=== PATIENT | male | born 1970 | race Caucasian/White ===

== ENCOUNTER 2022-03-29 17:20 | Inpatient (IN) | payer OTHER, SELFPAY ==
[2022-03-29] VITALS (7 sets, daily range): BP systolic 149–168; BP diastolic 115–127; PULSE 88–100; RESP 18–31; TEMP 36.5–36.8; O2SAT 96–100; BMI 32.3
--- NOTE | ~2022-03-29 | XR_ITS ---
EXAMINATION: XR chest 2V 03/29/2022 17:42 INDICATION: Shortness of breath. Hypertension. CHF. PROCEDURE: 2 view chest COMPARISON: 03/10/2014 FINDINGS: There is bibasilar atelectasis. No focal pneumonia. Cardiomegaly.. There are no pleural ef fusions. There is no pneumothorax suspected. IMPRESSION: 1: Bibasilar atelectasis. 2: Cardiomegaly. Reviewed, dictated and finalized at location B.
--- NOTE | ~2022-03-29 | CT_ITS ---
EXAMINATION: CT chest abdomen pelvis wo con DATE: 03/29/2022 19:12 INDICATION: Shortness of breath, fluid overload, abdominal pain TECHNIQUE: Computed tomography (CT) of the chest, abdomen, and pelvis was performed without intraveno us contrast. Automated exposure control and iterative reconstruction technique were employed. Exam do se: 1743.48 mGy-cm total exam DLP. COMPARISON: 03/29/2022 2 view chest FINDINGS: CHEST CT: 7.9 mm right lower lobe pulmonary nodule Minimal bilateral lower lobe dependent atelectasis.. The lungs are otherwise clear of infiltrate or c onsolidation. There is cardiomegaly. Coronary artery calcifications. There is trace pericardial fluid. There are slight bilateral pleural effusions. No thoracic aortic aneurysm. No hilar mass lesion or adenopathy. Scattered likely reactive small medi astinal nodes. There is edema of the chest wall. ABDOMEN/PELVIS CT: There is prominent edema of the abdominal and pelvic woodruff. There is prominent asymmetric soft tissue thickening of the left rectus abdominis muscle with numerou s calcifications, extending from the upper to the lower abdomen. Differential diagnosis includes rect us abdominous intramuscular myositis ossificans, prior hematoma of the rectus abdominis muscle with s ubsequent calcification and other much less likely considerations such as soft tissue sarcoma metasta tic osteosarcoma. This would be amenable to CT-guided percutaneous needle biopsy as clinically approp riate. The gallbladder appears to be surgically absent. No hepatic, splenic, pancreatic, adrenal or renal sp kyaw-occupying mass lesion is detected. No urinary tract calculus is detected. There is mild left hydronephrosis, possibly due to ureteropelvic disproportion.. The urinary bladder is unremarkable. There is prostate enlargement and calcification. Normal caliber of the abdominal aorta. No intraperitoneal or retroperitoneal or pelvic mass lesion or adenopathy. There is mild free fluid in the dependent lower pelvis.. No suspicious osteolytic or osteoblastic lesions. IMPRESSION: Anasarca Cardiomegaly Coronary atherosclerosis Left rectus abdominis asymmetric enlargement and numerous calcifications; most likely diagnosis is my ositis ossificans or prior hematoma calcification; differential diagnosis is given above Nonspecific mild left hydronephrosis, without evidence of urinary tract calculus Prostate enlargement and calcifications 7.9 mm right lower lobe pulmonary nodule; follow-up CT imaging in 6-12 months is recommended Reviewed, dictated and finalized at Location [facility]. Reviewed, dictated and finalized at location A. IMPRESSION: Anasarca Cardiomegaly Coronary atherosclerosis Left rectus abdominis asymmetric enlargement and numerous calcifications; most likely diagnosis is myositis ossificans or prior hematoma calcification; differ ential diagnosis is given above Nonspecific mild left hydronephrosis, without evidence of urinary tract calculu s Prostate enlargement and calcifications 7.9 mm right lower lobe pulmonary nodule; follow-up CT imaging in 6-12 months i s recommended
--- NOTE | 2022-03-29 17:24 | ECG_ITS ---
Measurements Intervals [place] Rate: 98 P: 10 NM: 188 QRS: -29 QRSD: 99 T: 111 QT: 354 QTc: 454 Interpretive Statements SINUS RHYTHM BORDERLINE LEFT AXIS DEVIATION [QRS AXIS < -20] POSSIBLE LEFT VENTRICULAR HYPERTROPHY [VOLTAGE CRITERIA PLUS LAE OR QRS WIDENING] WITH SECONDARY REPOLARIZATION ABNORMALITY ABNORMAL ECG NO PREVIOUS ECG AVAILABLE FOR COMPARISON Electronically Signed On 03-30-2022 14:02:21 CDT by Owen Pereyra M.D.
--- NOTE | 2022-03-29 17:25 | PC.NURSE ---
anya, pt. sister.
--- NOTE | 2022-03-29 17:27 | ED.SOB ---
HPI - SOB/Dyspnea General Chief Complaint: Shortness of Breath/Dyspnea Stated Complaint: SOB, Abd Pain Time Seen by Provider: 03/29/22 17:24 Source: patient Mode of arrival: EMS Limitations: no limitations History of Present Illness HPI Narrative: This is a 52 year old male that presents to the ER for worsening shortness of breath. Associated with lower extremity edema. Reports he has been in [facility] the last couple of months so has not taken any of his medications. He also reports before he was in [facility] he had a biopsy on his stomach and was never able to follow up for this. Denies fever, cough, or chest pain. Related Data Allergies Allergy/AdvReac Type Severity Reaction Status Date / Time Penicillins Allergy Other Verified 03/29/22 17:25 Review of Systems Review of Systems: CONSTITUTIONAL: Denies fever, CARDIOVASCULAR: Reports edema. Denies chest pain RESPIRATORY: Reports dyspnea. GASTROINTESTINAL: Denies abdominal pain, nausea, vomiting, or diarrhea. All systems reviewed & are unremarkable except as noted in HPI and below PMFSH Past Medical History Medical History (Updated 03/29/22 @ 22:53 by Hayley Armenta PA-C) History of CHF (congestive heart failure) History of hypertension Social History Social History (Updated 03/29/22 @ 17:44 by Hayley Armenta PA-C) Smoking status: Current every day smoker Alcohol intake: current Substance use: current Exam Narrative: GENERAL: Well-appearing, well-nourished, and in no acute distress. HEAD: Normocephalic, atraumatic. EYES: EOMI. CHEST: No respiratory distress. Rales in the bilateral lower lobes. No wheezes or rhonchi HEART: Regular rate and rhythm. No murmur heard. Normal peripheral pulses. ABDOMEN: Soft, nontender, nondistended, normal active bowel sounds. EXTREMITIES: Normal range of motion. 1+ pitting edema to the bilateral lower extremities. Normal DP pulses SKIN: Warm, dry, no rash. NEURO: No focal deficits. Alert and oriented x3. PSYCH: Normal mood and affect Course Consultations Consultation #1: Spoke with patient's primary about work-up. Patient will be started on amlodipine and is to follow-up outpatient. Date: 03/29/22 Vital Signs Vital signs: Vital Signs Blood Pressure 168/127 H 03/29/22 17:15 Temperature 98.2 F 03/29/22 21:37 Pulse Rate 95 03/29/22 18:19 Respiratory Rate 31 H 03/29/22 18:19 Blood Pressure 149/117 H 03/29/22 18:19 Pulse Oximetry 100 03/29/22 18:19 Oxygen Delivery Room Air 03/29/22 17:19 MDM - SOB/Dyspnea MDM Narrative Medical decision making narrative: Patient presents to the emergency department for worsening dyspnea over the last couple of months. Reportedly patient had been incarcerated and was not taking any of his medications. Quite hypertensive on arrival, this improved with IV Lasix. His shortness of breath improved as well. Oxygen saturation has remained normal on room air. CBC with mild normocytic anemia with hemoglobin of 13.4. Metabolic panel without concerning findings. EKG without acute ST changes and baseline troponin is negative. BNP is elevated to 5830. CT of the chest/abdomen/pelvis shows anasarca with cardiomegaly and coronary atherosclerosis. She has left rectus abdominis asymmetric enlargement and numerous calcifications. Patient reports he has had this area biopsied in [place] prior to being incarcerated. He had not followed up for the results of this yet. She has a pulmonary nodule that will need follow-up in 6 to 12 months. Patient was updated on case findings. Will be admitted for further management of fluid overload. Spoke with hospitalist about patient and work-up who accepts admission Lab Data Attestation: I reviewed the patient's lab results. Result diagrams: 03/29/22 17:28 03/29/22 17:28 Labs: Lab Results 03/29/22 03/29/22 03/29/22 Range/Units 17:28 17:28 17:28 WBC 8.2 (4.5-10.0) K/mm3 RBC 5.00 (4.6-6.20
[2022-03-29 17:37] LABS: Basophils Absolute Auto 0.1 K/mm3 (0.0-0.1); Basophils Percent Auto 1.2 % (0.2-1.2); Eosinophils Absolute Auto 0.2 K/mm3 (0-0.3); Eosinophils Percent Auto 1.8 % (0-4.4); Hemoglobin 13.4 g/dL (14.0-18.0); Immature Granulocyte Absolute 0.02 K/mm3 (0.00-0.031); Immature Granulocyte Percent A 0.2 % (0-0.5); Lymphocytes Absolute Auto 1.42 K/mm3 (0.9-3.2); Lymphocytes Percent Auto 17.4 % (18.3-44.2); Mean Corpuscular HGB Conc 30.5 g/dl (32-36); Mean Corpuscular Hemoglobin 26.8 pg (26-34); Mean Platelet Volume 10.2 fl (7.4-10.4); Monocytes Absolute Auto 1.1 K/mm3 (0.1-0.6); Monocytes Percent Auto 13.9 % (2.6-8.5); Neutrophils Absolute Auto 5.3 K/mm3 (1.3-6.7); Neutrophils Percent Auto 65.5 % (45.5-73.1); Platelet Count Result 321 k/mm3 (150-375); Red Cell Distribution Width 15.6 % (11.5-14.5); White Blood Count 8.2 K/mm3 (4.5-10.0)
[2022-03-29 17:48] LABS: INR 1.3; Partial Thromboplastin Time 29.3 SECONDS (22.3-36.8); Prothrombin Time 15.6 Seconds (11.1-14.7)
[2022-03-29 17:51] LABS: Alanine Aminotransferase 20 U/L (6-50); Albumin Level 4.1 g/dL (3.5-5.1); Alkaline Phosphatase 89 U/L (38-126); Anion Gap 7 mmol/L (8-16); Aspartate Amino Transferase 29 U/L (17-59); Bilirubin,Total 1.4 mg/dL (0.2-1.3); Blood Urea Nitrogen 21 mg/dL (9-20); Calcium 9.9 mg/dL (8.4-10.2); Carbon Dioxide 28 mmol/L (22-30); Chloride 104 mmol/L (98-107); Estimated Glomerular Filt Rate > 60; Glucose 99 mg/dL (65-110); Lipase 115 U/L (23-300); Sodium 139 mmol/L (137-145)
[2022-03-29 18:02] LABS: NT Pro B Type Natriuretic Pept 5830 pg/mL (5-100)
[2022-03-29 18:06] LABS: Troponin I 0.027 ng/mL (0.000-0.034)
[2022-03-29] MEDS: FUROSEMIDE INJ 40 MG/4 ML VIAL IV PUSH (18:18)
--- NOTE | 2022-03-29 23:18 | ADMGEN ---
This patient, Papi Sanchez, was admitted to [address] [place] [address] Room 310-01. Patient/family oriented to hospital policies and general routines including ID bracelet, bed and alarms, visiting hours, pain management, procedures, bathroom and other care routines, personal items, smoking policy, room service/diet, and visiting hours. Information on how to activate the Rapid Response Team has been discussed. Patient/Family are encouraged to report perceived risks to care and to ask questions if they do not understand what they are told or what they should do.
--- NOTE | 2022-03-29 23:22 | PC.NURSE ---
Home medications completed via external med rec per Dr. Rishi MONTOYA. Patient has been unable to take medications as prescribed.
[2022-03-30] VITALS (7 sets, daily range): BP systolic 119–127; BP diastolic 70–93; PULSE 83–97; RESP 18–20; TEMP 35.9–36.8; O2SAT 95–97
--- NOTE | 2022-03-30 | ECHO_ITS ---
Patient Info Name: Papi Sanchez Age: 52 years : 1970 Gender: Male Ht: 69 in Wt: 218 lbs BSA: 2.23 m2 HR: 86 bpm BP: 119 / 78 mmHg Technical Quality: Good Exam Date: 03/30/2022 11:31 AM Exam Location: [facility] Pulmonary Exam Room: 310 Patient Status: Outpatient Admit Date: 03/29/2022 Staff Ordering Physician: Nereyda Blackwell DO Lacer And Tier: Radha Reyna RDCS Attending Provider: Georgina Sutton PA-C Referring Physician: Rishi WALTERS; Exam Type: CA echo doppler color flow Study Info Indications - CHF EXACERBATION Complete two-dimensional, color flow and Doppler transthoracic echocardiogram is performed. Summary 1. Complete two-dimensional, color flow and Doppler transthoracic echocardiogram is performed. 2. Left ventricular chamber dimension is severely enlarged. 3. Left ventricular systolic function is severely reduced, estimated at 20-25%. 4. There is mildly increased left ventricular wall thickness. 5. The left ventricular diastolic function is abnormal. 6. E/e' 26 is elevated. 7. Left atrial chamber dimension is severely enlarged. 8. Right atrial chamber dimension is severely enlarged. 9. There is mild aortic valve sclerosis. 10. The mitral valve has mildly thickened leaflets and mildly calcified annulus. 11. There is mild to moderate mitral valve regurgitation. 12. There is mild tricuspid valve regurgitation. 13. No pulmonary hypertension, estimated pulmonary arterial systolic pressure is 34 mmHg. 14. There is small circumferential pericardial effusion. Left Ventricle E/e' 26 is elevated. Left ventricular chamber dimension is severely enlarged. Left ventricular systolic function is severely reduced, estimated at 20-25%. There is mildly increased left ventricular wall thickness. The left ventricular diastolic function is abnormal. Right Ventricle Right ventricular chamber dimension is normal. Right ventricular systolic function is normal. Left Atria Left atrial chamber dimension is severely enlarged. Right Atria Right atrial chamber dimension is severely enlarged. Aortic Valve The aortic valve is trileaflet. There is mild aortic valve sclerosis. There is no aortic valve stenosis. There is no aortic valve regurgitation. Pulmonic Valve There is no pulmonic regurgitation. Mitral Valve The mitral valve has mildly thickened leaflets and mildly calcified annulus. There is no mitral valve stenosis. There is mild to moderate mitral valve regurgitation. Tricuspid Valve There is mild tricuspid valve regurgitation. No pulmonary hypertension, estimated pulmonary arterial systolic pressure is 34 mmHg. Pericardium/Pleural No cardiac tamponade. There is small circumferential pericardial effusion. Inferior Vena Cava Normal inferior vena cava with >50% collapse upon inspiration consistent with normal right atrial pressure, 5 mmHg. Aorta The aortic root size at the sinus of Valsalva is normal. Left Ventricular Outflow Tract Name Value Normal LVOT 2D LVOT Diameter 2.1 cm LVOT Doppler LVOT Peak Gradient 3 mmHg LVOT Mean
--- NOTE | 2022-03-30 05:53 | PM.IMHP ---
H&P: HPI History of Present Illness Date/Time: 03/30/22 05:53 Chief Complaint: Shortness of breath, worsening swelling Narrative: 52-year-old male with past medical history of CHF, valvular heart disease, hyperlipidemia, essential hypertension, BPH, GERD and prior evaluation for calcifications in his rectus abdominus muscles who presented to the ER via EMS from [facility] due to increasing shortness of breath. The patient reports that he has had progressive shortness of breath for the last 70 or days or so. He was smoking meth and was homeless so he was living at an abandoned house. During this time he he was not concerned about taking his antihypertensives and other medications due to his drug use. He was having difficulty following up with his care providers due to lack of support. Then approximately 45 days ago he was arrested and placed in the [facility] care due to being charged with burglary for being in the abandoned house. He reported that he was already short of breath before he was ever arrested. He you at that time was having some mild lower extremity swelling. Throughout the course of his incarceration his edema had progressively worsened moving up his legs and into his abdominal wall. He reports that his abdomen became so heavy that he had to walk stooped over. He was having marked orthopnea and was having difficulty sleeping at night. When the staff at the senior care would wake him up he would feel so bad that he did not want to take his medications. He has been trying over the last 2 weeks to take his medications more regularly. He stated that the present staff were not concerned about his symptoms and did not bring him in for evaluation until 1 of his fellow inmates voiced concerns about his condition yesterday. He was due for his court hearing on the and he was is hoping that he could make it to the and then he planned to come to the ER. Instead since his fellow inmate voiced concerns the patient was brought. He has been released from senior care at this time for medical evaluation. Patient reports that he has not been able to walk even more than 6 ft without profound dyspnea. He denies any chest pain or palpitations. He reports that he has been off of methamphetamines since he was placed in [facility]. He reports that he has been having dark urine and not significant amounts prior to coming to the ER. But after he received 40 mg IV Lasix in the ER he filled 5 urinals while in the ER. He he has only urinated once since arriving to the medical floor. He does have known calcification of his left rectus abdominus muscles and has had prior CT-guided biopsies at [place]. He reports that he was told he had some problems with his heart valves at [place] a couple of years ago. He has not had an echo of his heart in at least the last year if not longer. He denies a prior history of FL but is on Plavix. Information obtained from patient report and ER records. Review of Systems Review of Systems: 12 systems were reviewed with pertinent positives and negatives per HPI. Except as documented in the HPI, all other systems were reviewed and are negative. [facility] Past Medical History Medical History (Updated 03/30/22 @ 08:48 by Nereyda Blackwell DO) BPH (benign prostatic hyperplasia) CHF (congestive heart failure) Essential hypertension GERD (gastroesophageal reflux disease) Hyperlipidemia Methamphetamine abuse TIA (transient ischemic attack) Valvular heart disease Surgical History Surgical History (Updated 03/30/22 @ 08:17 by Nereyda Blackwell DO) History of biopsy History of CT-guided biopsy of left rectus abdominus enlargement and calcifications. Patient does not know his official diagnosis. Hx of cholecystectomy (~2019) Status post open reduction with internal fixation of fracture (~1986) Left orbital blowout fracture Family History Family History (Updated 03/30/22 @ 08:19 by Nereyda Blackwell DO) Mother , Age 5
[2022-03-30] MEDS: ENOXAPARIN 40 MG/0.4 ML SYRINGE SUB-Q (09:33)
[2022-03-30] MEDS: amLODIPine BESYLATE 5 MG TABLET 10 MG PO (09:33)
[2022-03-30] MEDS: lisinopriL 20 MG TABLET PO (09:33)
[2022-03-30] MEDS: PANTOPRAZOLE 40 MG TABLET PO (09:33)
[2022-03-30] MEDS: NIFEdipine 30 MG TAB.ER.24 60 MG PO (09:33)
[2022-03-30] MEDS: CLOPIDOGREL BISULFATE 75 MG TABLET PO (09:33)
[2022-03-30] MEDS: FUROSEMIDE INJ 40 MG/4 ML VIAL IV PUSH ×2 (09:34→21:18)
[2022-03-30 09:44] LABS: Hematocrit 39.9 % (42.0-52.0); Hemoglobin 12.4 g/dL (14.0-18.0); Mean Corpuscular HGB Conc 31.1 g/dl (32-36); Mean Corpuscular Hemoglobin 26.6 pg (26-34); Mean Corpuscular Volume 85.4 fl (80-100); Mean Platelet Volume 10.2 fl (7.4-10.4); Platelet Count Result 293 k/mm3 (150-375); Red Blood Count 4.67 M/mm3 (4.6-6.20); Red Cell Distribution Width 15.4 % (11.5-14.5); White Blood Count 6.1 K/mm3 (4.5-10.0)
[2022-03-30 10:02] LABS: Anion Gap 6 mmol/L (8-16); Blood Urea Nitrogen 19 mg/dL (9-20); Calcium 9.2 mg/dL (8.4-10.2); Carbon Dioxide 30 mmol/L (22-30); Chloride 103 mmol/L (98-107); Estimated CRCL calculation 89 ml/min; Estimated Glomerular Filt Rate > 60; Glucose 129 mg/dL (65-110); Potassium 4.1 mmol/L (3.4-5.0); Sodium 139 mmol/L (137-145)
[2022-03-30] MEDS: TAMSULOSIN HCL 0.4 MG CAPSULE PO (12:08)
--- NOTE | 2022-03-30 15:59 | PM.IMPN ---
Progress Note: A&P Assessment and Plan (1) CHF exacerbation: Qualifiers: Heart failure type: unspecified Qualified Code(s): I50.9 - Heart failure, unspecified Code(s): I50.9 - Heart failure, unspecified Status: Acute Assessment and Plan: Patient presented with increased shortness of breath and diffuse edema Echo revealed severely reduced EF 20-25% with abnormal diastolic function. Will consult cardiology. Patient likely will require LifeVest. Continue with IV Lasix 40 mg b.i.d. Monitor strict I&O, daily weights. Heart healthy diet. Continue lisinopril Patient has chronically uncontrolled heart failure. He has been off of his medications for some time. Records pending from [facility] (2) Anasarca: Code(s): R60.1 - Generalized edema Status: Acute Assessment and Plan: Secondary to uncontrolled heart failure Continue with diuresis Monitor volume status (3) Pulmonary nodule: Code(s): R91.1 - Solitary pulmonary nodule Status: Acute Assessment and Plan: CT of the chest revealed 7.9 mm right lower lobe pulmonary nodule Will need outpatient repeat CT scan of the chest in 6-12 months (4) Methamphetamine abuse in remission: Code(s): F15.11 - Other stimulant abuse, in remission Status: Acute Assessment and Plan: Patient had been using methamphetamines prior to his incarceration He has been off of methamphetamines for over 1 month. He wishes to continue to abstain from drugs. He is interested in inpatient treatment options at [facility] Care coordination following. Resources have been provided. (5) Hypertension: Qualifiers: Hypertension type: primary hypertension Qualified Code(s): I10 - Essential (primary) hypertension Code(s): I10 - Essential (primary) hypertension Status: Acute Assessment and Plan: Blood pressure reviewed and has improved following diuresis. Last BP 127/93 Continue amlodipine, lisinopril, nifedipine (6) Abnormal CT of the abdomen: Code(s): R93.5 - Abnormal findings on diagnostic imaging of other abdominal regions, including retroperitoneum Status: Acute Assessment and Plan: CT of the abdomen revealed left rectus abdominus asymmetric enlargement and numerous calcifications. Most likely diagnosis is myositis ossifications or prior hematoma calcification. Less likely considerations include soft tissue sarcoma, metastatic osteosarcoma Patient has been evaluated by this in the past and reports recently had CT-guided biopsy at [place] Records have been requested No acute issues at this time. He will need to follow-up outpatient regarding this Subjective Date/time seen: 03/30/22 15:59 Interval history: Date of service: 03/30/2022 Papi Sanchez is a 52-year-old male with a history of CHF currently untreated, hypertension, hyperlipidemia, methamphetamine abuse, BPH, valvular disease, and recent incarceration who is seen in follow-up for CHF exacerbation. He is feeling better today. He states that his shortness of breath is improved. His swelling has gone down ?a lot.? He was having issues with swelling in his feet, legs, and stomach. He states the stomach swelling took a bit longer to go down but everything is improving now. He does endorse GERONIMO. He denies PND or orthopnea. He denies cough. He has been feeling fatigued. Denies dizziness, lightheadedness, or weakness. He states he wants to stop using drugs but he is not sure where he is going to go hemorrhoids here because most of his friends are still using drugs and he does not to put himself in that situation. Review of Systems Review of Systems: All systems reviewed & are unremarkable except as noted in HPI and below Exam Narrative: General: Well-nourished, well-appearing 52-year-old male, semi recumbent in bed, comfortable, NARD Neuro: awake
--- NOTE | 2022-03-30 23:47 | PCRCNOTE ---
pt unable to do sleep study due to lasix administration on 03/30.
[2022-03-31] VITALS (9 sets, daily range): BP systolic 112–124; BP diastolic 70–89; PULSE 72–96; RESP 16–20; TEMP 36.1–36.6; O2SAT 93–95
[2022-03-31 07:00] LABS: Hematocrit 40.6 % (42.0-52.0); Hemoglobin 12.8 g/dL (14.0-18.0); Mean Corpuscular HGB Conc 31.5 g/dl (32-36); Mean Corpuscular Hemoglobin 26.5 pg (26-34); Mean Corpuscular Volume 84.1 fl (80-100); Mean Platelet Volume 10.4 fl (7.4-10.4); Platelet Count Result 324 k/mm3 (150-375); Red Blood Count 4.83 M/mm3 (4.6-6.20); Red Cell Distribution Width 15.1 % (11.5-14.5)
[2022-03-31 07:10] LABS: Anion Gap 7 mmol/L (8-16); Blood Urea Nitrogen 18 mg/dL (9-20); Calcium 9.6 mg/dL (8.4-10.2); Carbon Dioxide 30 mmol/L (22-30); Chloride 102 mmol/L (98-107); Estimated CRCL calculation 87 ml/min; Estimated Glomerular Filt Rate > 60; Glucose 126 mg/dL (65-110); Potassium 3.6 mmol/L (3.4-5.0); Sodium 139 mmol/L (137-145)
[2022-03-31] MEDS: FUROSEMIDE INJ 40 MG/4 ML VIAL IV PUSH ×2 (10:04→20:44)
[2022-03-31] MEDS: ENOXAPARIN 40 MG/0.4 ML SYRINGE SUB-Q (10:04)
[2022-03-31] MEDS: lisinopriL 20 MG TABLET PO (10:05)
[2022-03-31] MEDS: CLOPIDOGREL BISULFATE 75 MG TABLET PO (10:05)
[2022-03-31] MEDS: PANTOPRAZOLE 40 MG TABLET PO (10:05)
[2022-03-31] MEDS: amLODIPine BESYLATE 5 MG TABLET 10 MG PO (10:05)
[2022-03-31] MEDS: TAMSULOSIN HCL 0.4 MG CAPSULE PO (10:05)
[2022-03-31] MEDS: NIFEdipine 30 MG TAB.ER.24 60 MG PO (10:05)
--- NOTE | 2022-03-31 11:44 | PM.CNCAR ---
Assessment and Plan Assessment and plan (1) CHF exacerbation: Qualifiers: Heart failure type: unspecified Qualified Code(s): I50.9 - Heart failure, unspecified Code(s): I50.9 - Heart failure, unspecified Status: Acute Assessment and Plan: Acute systolic heart failure. Continue lisinopril. Will add carvedilol 3.25 mg p.o. b.i.d.. He is also on 2 calcium channel blockers which I am uncertain as to why. Will stop his amlodipine and eventually get him off of nifedipine also and transition him to standard heart failure meds. Continue IV diuresis. Follow renal function. (2) Cardiomyopathy: Code(s): I42.9 - Cardiomyopathy, unspecified Status: Acute Assessment and Plan: Probably nonischemic. EF 20 25%. Will request records from [place] as it sounds like the patient had a cardiac catheterization recently. (3) Hypertension: Qualifiers: Hypertension type: primary hypertension Qualified Code(s): I10 - Essential (primary) hypertension Code(s): I10 - Essential (primary) hypertension Status: Acute Assessment and Plan: At goal (4) Methamphetamine abuse in remission: Code(s): F15.11 - Other stimulant abuse, in remission Status: Acute History of Present Illness History of Present Illness Consult date/time: 03/31/22 11:44 Reason For Visit: [place] Narrative: Date of service: 03/31/2022 Reason for consultation congestive heart failure Requesting provider: Georgina Sutton Review of Systems Review of Systems: All systems reviewed & are unremarkable except as noted in HPI and below Constitutional: Constitutional: Denies body ache(s) Eyes: Eyes: Denies blurry vision ENT: Reports Normal hearing present Cardiovascular: Cardiovascular: Denies chest pain and Reports leg edema Respiratory: Respiratory: Reports dyspnea Gastrointestinal: Gastrointestinal: Denies abdominal pain Genitourinary: Genitourinary: Denies hematuria Musculoskeletal: Musculoskeletal: Denies back pain Integumentary/Breasts: Skin/Breast: Denies breast pain Neurologic: Denies Abnormal speech present Psychiatric: Psychiatric: Denies confusion Endocrine: Endocrine: Denies excessive sweating Hematologic/Lymphatic: Hematologic/Lymphatic: Denies easy bleeding Allergic/Immunologic: Allergic/Immunologic: Denies GI upset with certain foods PMFSH Past Medical History Medical History BPH (benign prostatic hyperplasia) CHF (congestive heart failure) Essential hypertension GERD (gastroesophageal reflux disease) Hyperlipidemia Methamphetamine abuse TIA (transient ischemic attack) Valvular heart disease Surgical History Surgical History History of biopsy History of CT-guided biopsy of left rectus abdominus enlargement and calcifications. Patient does not know his official diagnosis. Hx of cholecystectomy (~2019) Status post open reduction with internal fixation of fracture (~1986) Left orbital blowout fracture Family History Family History Mother , Age 50 Lung cancer Hypertension Father , 864 S/P triple vessel bypass Hypertension Chronic kidney disease Sibling Cerebrovascular accident Heart attack Hypertension Social History Social History Social History: He has been homeless since 2019. 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 He has smoked a half a pack per day since he was 16 years old. He used to drink up to 1-2 pt of alcohol a day but only rarely drinks alcohol now. He has used methamphetamines on a frequent an almost daily
--- NOTE | 2022-03-31 14:48 | P.PNIM_ITS ---
Progress Note: A&P Assessment and Plan (1) CHF exacerbation: Qualifiers: Heart failure type: unspecified Qualified Code(s): I50.9 - Heart failure, unspecified Code(s): I50.9 - Heart failure, unspecified Status: Acute Assessment and Plan: Patient presented with increased shortness of breath and diffuse edema. BNP 5800 * Echo revealed severely reduced EF 20-25% with abnormal diastolic function * Appreciate cardiology consultation * Continue with IV Lasix 40 mg b.i.d. * Started on carvedilol 3.25 mg b.i.d. * Continue lisinopril * Monitor strict I&O, daily weights. Heart healthy diet. * Patient has chronically uncontrolled heart failure. He has been off of his medications for some time. * Records pending from [facility] * He has had symptomatic improvement with diuresis (2) Anasarca: Code(s): R60.1 - Generalized edema Status: Acute Assessment and Plan: Secondary to uncontrolled heart failure * Continue with diuresis * Monitor volume status (3) Pulmonary nodule: Code(s): R91.1 - Solitary pulmonary nodule Status: Acute Assessment and Plan: CT of the chest revealed 7.9 mm right lower lobe pulmonary nodule * Will need outpatient repeat CT scan of the chest in 6-12 months (4) Methamphetamine abuse in remission: Code(s): F15.11 - Other stimulant abuse, in remission Status: Acute Assessment and Plan: Patient had been using methamphetamines prior to his incarceration * He has been off of methamphetamines for over 1 month. * He wishes to continue to abstain from drugs. * He is interested in inpatient treatment options at [facility] * Care coordination following. Resources have been provided. (5) Hypertension: Qualifiers: Hypertension type: primary hypertension Qualified Code(s): I10 - Essential (primary) hypertension Code(s): I10 - Essential (primary) hypertension Status: Acute Assessment and Plan: Blood pressure reviewed and has improved following diuresis. Last BP 124/89 * Continue lisinopril and nifedipine * Amlodipine has been discontinued per Cardiology. Patient was on 2 calcium channel graciela medications * Monitor BP trends (6) Abnormal CT of the abdomen: Code(s): R93.5 - Abnormal findings on diagnostic imaging of other abdominal regions, including retroperitoneum Status: Acute Assessment and Plan: CT of the abdomen revealed left rectus abdominus asymmetric enlargement and numerous calcifications. Most likely diagnosis is myositis ossifications or prior hematoma calcification. Less likely considerations include soft tissue sarcoma, metastatic osteosarcoma * Patient has been evaluated for this in the past and reports recently had CT- guided biopsy at [place] * Records have been requested * No acute issues at this time. He will need to follow-up outpatient regarding this Subjective Date/time seen: 03/31/22 14:48 Interval history: Date of service: 03/31/2022 Papi Sanchez is a 52-year-old male with a history of CHF currently untreated, hypertension, hyperlipidemia, methamphetamine abuse, BPH, valvular disease, and recent incarceration who is seen in follow-up for CHF exacerbation. He feels better today. His shortness of breath has improved. He also believes his swelling has improved. At this time he states his feet are pretty measures only swelling he has left. He denies any further abdominal swelling. He does have a bit of abdominal gisselle
--- NOTE | 2022-03-31 14:48 | PM.IMPN ---
Progress Note: A&P Assessment and Plan (1) CHF exacerbation: Qualifiers: Heart failure type: unspecified Qualified Code(s): I50.9 - Heart failure, unspecified Code(s): I50.9 - Heart failure, unspecified Status: Acute Assessment and Plan: Patient presented with increased shortness of breath and diffuse edema. BNP 5800 Echo revealed severely reduced EF 20-25% with abnormal diastolic function Appreciate cardiology consultation Continue with IV Lasix 40 mg b.i.d. Started on carvedilol 3.25 mg b.i.d. Continue lisinopril Monitor strict I&O, daily weights. Heart healthy diet. Patient has chronically uncontrolled heart failure. He has been off of his medications for some time. Records pending from [facility] He has had symptomatic improvement with diuresis (2) Anasarca: Code(s): R60.1 - Generalized edema Status: Acute Assessment and Plan: Secondary to uncontrolled heart failure Continue with diuresis Monitor volume status (3) Pulmonary nodule: Code(s): R91.1 - Solitary pulmonary nodule Status: Acute Assessment and Plan: CT of the chest revealed 7.9 mm right lower lobe pulmonary nodule Will need outpatient repeat CT scan of the chest in 6-12 months (4) Methamphetamine abuse in remission: Code(s): F15.11 - Other stimulant abuse, in remission Status: Acute Assessment and Plan: Patient had been using methamphetamines prior to his incarceration He has been off of methamphetamines for over 1 month. He wishes to continue to abstain from drugs. He is interested in inpatient treatment options at [facility] Care coordination following. Resources have been provided. (5) Hypertension: Qualifiers: Hypertension type: primary hypertension Qualified Code(s): I10 - Essential (primary) hypertension Code(s): I10 - Essential (primary) hypertension Status: Acute Assessment and Plan: Blood pressure reviewed and has improved following diuresis. Last BP 124/89 Continue lisinopril and nifedipine Amlodipine has been discontinued per Cardiology. Patient was on 2 calcium channel graciela medications Monitor BP trends (6) Abnormal CT of the abdomen: Code(s): R93.5 - Abnormal findings on diagnostic imaging of other abdominal regions, including retroperitoneum Status: Acute Assessment and Plan: CT of the abdomen revealed left rectus abdominus asymmetric enlargement and numerous calcifications. Most likely diagnosis is myositis ossifications or prior hematoma calcification. Less likely considerations include soft tissue sarcoma, metastatic osteosarcoma Patient has been evaluated for this in the past and reports recently had CT-guided biopsy at [place] Records have been requested No acute issues at this time. He will need to follow-up outpatient regarding this Subjective Date/time seen: 03/31/22 14:48 Interval history: Date of service: 03/31/2022 Papi Sanchez is a 52-year-old male with a history of CHF currently untreated, hypertension, hyperlipidemia, methamphetamine abuse, BPH, valvular disease, and recent incarceration who is seen in follow-up for CHF exacerbation. He feels better today. His shortness of breath has improved. He also believes his swelling has improved. At this time he states his feet are pretty measures only swelling he has left. He denies any further abdominal swelling. He does have a bit of abdominal pain in the left lower quadrant. He describes the area of calcification in his abdomen as a heaviness that ?pulls? when he is walking. He is able to ambulate around his room without difficulty. He denies GERONIMO. No chest pain or palpitations. Review of Systems Review of Systems: All systems reviewed & are unremarkable except as noted in HPI and below Exam Narrative: General: Well-nourished, well-appearing 5
[2022-03-31] MEDS: carvediloL 3.125 MG TABLET PO (20:44)
--- NOTE | 2022-03-31 21:15 | PCRCNOTE ---
ApneaLink held for tonight due to patient receiving Lasix and making frequent trips to the bathroom, per patient
[2022-04-01] VITALS (8 sets, daily range): BP systolic 110–122; BP diastolic 75–90; PULSE 85–102; RESP 18–20; TEMP 36.2–36.5; O2SAT 97–98
[2022-04-01 06:43] LABS: Hematocrit 40.7 % (42.0-52.0); Hemoglobin 12.5 g/dL (14.0-18.0); Mean Corpuscular HGB Conc 30.7 g/dl (32-36); Mean Corpuscular Hemoglobin 26.8 pg (26-34); Mean Corpuscular Volume 87.2 fl (80-100); Mean Platelet Volume 10.1 fl (7.4-10.4); Platelet Count Result 316 k/mm3 (150-375); Red Blood Count 4.67 M/mm3 (4.6-6.20); Red Cell Distribution Width 15.3 % (11.5-14.5); White Blood Count 7.2 K/mm3 (4.5-10.0)
[2022-04-01 07:01] LABS: Anion Gap 6 mmol/L (8-16); Blood Urea Nitrogen 20 mg/dL (9-20); Calcium 9.6 mg/dL (8.4-10.2); Carbon Dioxide 31 mmol/L (22-30); Chloride 101 mmol/L (98-107); Estimated CRCL calculation 76 ml/min; Estimated Glomerular Filt Rate > 60; Glucose 107 mg/dL (65-110); Potassium 3.7 mmol/L (3.4-5.0); Sodium 138 mmol/L (137-145)
[2022-04-01] MEDS: PANTOPRAZOLE 40 MG TABLET PO (09:40)
[2022-04-01] MEDS: carvediloL 3.125 MG TABLET PO (09:40)
[2022-04-01] MEDS: FUROSEMIDE INJ 40 MG/4 ML VIAL IV PUSH ×2 (09:40→20:55)
[2022-04-01] MEDS: ENOXAPARIN 40 MG/0.4 ML SYRINGE SUB-Q (09:40)
[2022-04-01] MEDS: TAMSULOSIN HCL 0.4 MG CAPSULE PO (09:40)
[2022-04-01] MEDS: CLOPIDOGREL BISULFATE 75 MG TABLET PO (09:40)
[2022-04-01] MEDS: lisinopriL 20 MG TABLET PO (09:40)
[2022-04-01] MEDS: NIFEdipine 30 MG TAB.ER.24 60 MG PO (09:40)
--- NOTE | 2022-04-01 10:00 | PM.PNCARD ---
Progress Note: A&P Assessment and Plan (1) CHF exacerbation: Qualifiers: Heart failure type: unspecified Qualified Code(s): I50.9 - Heart failure, unspecified Code(s): I50.9 - Heart failure, unspecified Status: Acute Assessment and Plan: Acute systolic heart failure. Continue lisinopril. Will increase carvedilol 3.25 mg p.o. b.i.d.. Will discontinue his nifedipine. Continue IV diuresis. Follow renal function. (2) Cardiomyopathy: Code(s): I42.9 - Cardiomyopathy, unspecified Status: Acute Assessment and Plan: Probably nonischemic. EF 20 25%. Will request records from [place] as it sounds like the patient had a cardiac catheterization recently. (3) Hypertension: Qualifiers: Hypertension type: primary hypertension Qualified Code(s): I10 - Essential (primary) hypertension Code(s): I10 - Essential (primary) hypertension Status: Acute Assessment and Plan: At goal (4) Methamphetamine abuse in remission: Code(s): F15.11 - Other stimulant abuse, in remission Status: Acute Subjective Date/time seen: 04/01/22 10:00 Interval history: Papi Sanchez is a 52-year-old male with a history of CHF currently untreated, hypertension, hyperlipidemia, methamphetamine abuse, BPH, valvular disease, and recent incarceration who is seen in follow-up for CHF exacerbation. Date of service 04/01/2022: Continues to feel better. Legs are less swollen. No syncope, presyncope. No chest pain Review of Systems Review of Systems: All systems reviewed & are unremarkable except as noted in HPI and below Constitutional: Constitutional: Denies body ache(s) and Denies excessive sweating Eyes: Eyes: Denies blurry vision ENT: Reports Normal hearing present Cardiovascular: Cardiovascular: Denies chest pain, Reports leg edema and Reports dyspnea Respiratory: Respiratory: Reports dyspnea Gastrointestinal: Gastrointestinal: Denies abdominal pain Genitourinary: Genitourinary: Denies hematuria Musculoskeletal: Musculoskeletal: Denies back pain Integumentary/Breasts: Skin/Breast: Denies breast pain Neurologic: Reports Normal hearing present, Denies Abnormal speech present and Denies confusion Psychiatric: Psychiatric: Denies confusion Endocrine: Endocrine: Denies excessive sweating Hematologic/Lymphatic: Hematologic/Lymphatic: Denies easy bleeding Allergic/Immunologic: Allergic/Immunologic: Denies GI upset with certain foods Exam Narrative: Awake alert oriented appears stated age Const: General: comfortable; No in distress or confusion Orientation/consciousness: No confusion HENMT: General nose exam: Normal nares present Eyes: Sclera: sclerae normal Neck: Neck: supple and no JVD Thyroid: thyroid normal Chest: Other: No reproducible chest wall Resp: Effort & Inspection: normal respiratory effort Cardio: Rate: regular rate Rhythm: regular rhythm Heart sounds: no murmurs Skin: General skin exam: normal color and no rashes or lesions noted Neuro: General: No gait normal and No confusion Cranial nerves: Yes Normal hearing present Speech: No Abnormal speech present Motor exam (neuro): 5/5 motor strength present throughout Extrem: Other: 2+ bilateral lower extremity edema Psych: Mental Status: mental status grossly normal Objective Data Vital Signs Vital Signs: Vital Signs - 24 hr 03/31/22 14:00 03/31/22 14:00 03/31/22 20:44 Temperature 36.1 C L 36.1 C L Pulse Rate 92 92 72 Respiratory Rate 20 20 Blood Pressure 112/78 112/78 Pulse Oximetry 94 Oxygen Delivery 03/31/22 20:00 03/31/22 22:00 03/31/22 21:00 Temperature 36.4 C L Pulse Rate 91 96 Respiratory Rate 16 Blood Pressure 112/70 Pulse Oximetry 95 Oxygen Delivery Room Air 04/01/22 00:00 04/01/22 04:00 04/01/22 06:00 Temperature 36.3 C L Pulse Rate 85 89 95 Respiratory Rate 18 Blood Pressure 118/75 Pulse Oxim
--- NOTE | 2022-04-01 14:13 | P.PNIM_ITS ---
Progress Note: A&P Assessment and Plan (1) CHF exacerbation: Qualifiers: Heart failure type: unspecified Qualified Code(s): I50.9 - Heart failure, unspecified Code(s): I50.9 - Heart failure, unspecified Status: Acute Assessment and Plan: Patient presented with increased shortness of breath and diffuse edema. BNP 5800 * Echo revealed severely reduced EF 20-25% with abnormal diastolic function * Appreciate cardiology consultation * Continue with IV Lasix 40 mg b.i.d. * Cardiology increased carvedilol to 6.25 b.i.d. * Continue lisinopril * Monitor strict I&O, daily weights. Heart healthy diet. * Patient has chronically uncontrolled heart failure. He has been off of his medications for some time. * Records pending from [facility] * He has had symptomatic improvement with diuresis (2) Anasarca: Code(s): R60.1 - Generalized edema Status: Acute Assessment and Plan: Secondary to uncontrolled heart failure * Continue with diuresis * Monitor volume status (3) Pulmonary nodule: Code(s): R91.1 - Solitary pulmonary nodule Status: Acute Assessment and Plan: CT of the chest revealed 7.9 mm right lower lobe pulmonary nodule * Will need outpatient repeat CT scan of the chest in 6-12 months (4) Methamphetamine abuse in remission: Code(s): F15.11 - Other stimulant abuse, in remission Status: Acute Assessment and Plan: Patient had been using methamphetamines prior to his incarceration * He has been off of methamphetamines for over 1 month. * He wishes to continue to abstain from drugs. * He is interested in inpatient treatment options at [facility] * Care coordination following. Resources have been provided. (5) Hypertension: Qualifiers: Hypertension type: primary hypertension Qualified Code(s): I10 - Essential (primary) hypertension Code(s): I10 - Essential (primary) hypertension Status: Acute Assessment and Plan: Blood pressure reviewed and has improved following diuresis. Last BP 118/75 * Continue lisinopril and carvedilol * Amlodipine and nifedipine both discontinued per Cardiology * Monitor BP trends (6) Abnormal CT of the abdomen: Code(s): R93.5 - Abnormal findings on diagnostic imaging of other abdominal regions, including retroperitoneum Status: Acute Assessment and Plan: CT of the abdomen revealed left rectus abdominus asymmetric enlargement and numerous calcifications. Most likely diagnosis is myositis ossifications or prior hematoma calcification. Less likely considerations include soft tissue sarcoma, metastatic osteosarcoma * Patient has been evaluated for this in the past and reports recently had CT- guided biopsy at [place] * Records have been requested * No acute issues at this time. He will need to follow-up outpatient regarding this Subjective Date/time seen: 04/01/22 14:13 Interval history: Date of service: 04/01/2022 Papi Sanchez is a 52-year-old male with a history of CHF currently untreated, hypertension, hyperlipidemia, methamphetamine abuse, BPH, valvular disease, and recent incarceration who is seen in follow-up for CHF exacerbation. He is feeling better today. Shortness of breath improving. He states his swelling is almost gone and does note some lingering swelling in his ankles. He is having some pain in the left lower quadrant that he describes as a heaviness/pulling from the known enlargement of the rectus abdominus. He is ab
--- NOTE | 2022-04-01 14:13 | PM.IMPN ---
Progress Note: A&P Assessment and Plan (1) CHF exacerbation: Qualifiers: Heart failure type: unspecified Qualified Code(s): I50.9 - Heart failure, unspecified Code(s): I50.9 - Heart failure, unspecified Status: Acute Assessment and Plan: Patient presented with increased shortness of breath and diffuse edema. BNP 5800 Echo revealed severely reduced EF 20-25% with abnormal diastolic function Appreciate cardiology consultation Continue with IV Lasix 40 mg b.i.d. Cardiology increased carvedilol to 6.25 b.i.d. Continue lisinopril Monitor strict I&O, daily weights. Heart healthy diet. Patient has chronically uncontrolled heart failure. He has been off of his medications for some time. Records pending from [facility] He has had symptomatic improvement with diuresis (2) Anasarca: Code(s): R60.1 - Generalized edema Status: Acute Assessment and Plan: Secondary to uncontrolled heart failure Continue with diuresis Monitor volume status (3) Pulmonary nodule: Code(s): R91.1 - Solitary pulmonary nodule Status: Acute Assessment and Plan: CT of the chest revealed 7.9 mm right lower lobe pulmonary nodule Will need outpatient repeat CT scan of the chest in 6-12 months (4) Methamphetamine abuse in remission: Code(s): F15.11 - Other stimulant abuse, in remission Status: Acute Assessment and Plan: Patient had been using methamphetamines prior to his incarceration He has been off of methamphetamines for over 1 month. He wishes to continue to abstain from drugs. He is interested in inpatient treatment options at [facility] Care coordination following. Resources have been provided. (5) Hypertension: Qualifiers: Hypertension type: primary hypertension Qualified Code(s): I10 - Essential (primary) hypertension Code(s): I10 - Essential (primary) hypertension Status: Acute Assessment and Plan: Blood pressure reviewed and has improved following diuresis. Last BP 118/75 Continue lisinopril and carvedilol Amlodipine and nifedipine both discontinued per Cardiology Monitor BP trends (6) Abnormal CT of the abdomen: Code(s): R93.5 - Abnormal findings on diagnostic imaging of other abdominal regions, including retroperitoneum Status: Acute Assessment and Plan: CT of the abdomen revealed left rectus abdominus asymmetric enlargement and numerous calcifications. Most likely diagnosis is myositis ossifications or prior hematoma calcification. Less likely considerations include soft tissue sarcoma, metastatic osteosarcoma Patient has been evaluated for this in the past and reports recently had CT-guided biopsy at [place] Records have been requested No acute issues at this time. He will need to follow-up outpatient regarding this Subjective Date/time seen: 04/01/22 14:13 Interval history: Date of service: 04/01/2022 Papi Sanchez is a 52-year-old male with a history of CHF currently untreated, hypertension, hyperlipidemia, methamphetamine abuse, BPH, valvular disease, and recent incarceration who is seen in follow-up for CHF exacerbation. He is feeling better today. Shortness of breath improving. He states his swelling is almost gone and does note some lingering swelling in his ankles. He is having some pain in the left lower quadrant that he describes as a heaviness/pulling from the known enlargement of the rectus abdominus. He is able to ambulate without difficulty. He denies GERONIMO. Denies cough. Denies nausea, vomiting, fever, chills, dizziness, lightheadedness, weakness. Reports regular bowel movements. Denies urinary symptoms. Appetite is good. Review of Systems Review of Systems: All systems reviewed & are unremarkable except as noted in HPI and below Exam Narrative: General: Well-nourished, well-appearing 52-year-old
[2022-04-01] MEDS: carvediloL 6.25 MG TABLET PO (20:55)
--- NOTE | 2022-04-02 05:32 | PCRCNOTE ---
Therapist spoke with patient about doing the apnea link last night and he agreed stating he goes to bed between 2300 and 2330. Therapist went back to apply apnea link at 2255 in which patient stated he no longer wanted to do it. Therapist encouraged patient to no avail.
[2022-04-02 06:00] VITALS: BP 103/69; PULSE 82; RESP 18; TEMP 36.7; O2SAT 96
[2022-04-02 06:10] LABS: Hematocrit 41.5 % (42.0-52.0); Hemoglobin 13.1 g/dL (14.0-18.0); Mean Corpuscular HGB Conc 31.6 g/dl (32-36); Mean Corpuscular Hemoglobin 26.7 pg (26-34); Mean Corpuscular Volume 84.5 fl (80-100); Mean Platelet Volume 9.9 fl (7.4-10.4); Platelet Count Result 339 k/mm3 (150-375); Red Blood Count 4.91 M/mm3 (4.6-6.20); Red Cell Distribution Width 15.1 % (11.5-14.5); White Blood Count 5.5 K/mm3 (4.5-10.0)
[2022-04-02 06:28] LABS: Anion Gap 3 mmol/L (8-16); Blood Urea Nitrogen 20 mg/dL (9-20); Calcium 9.7 mg/dL (8.4-10.2); Carbon Dioxide 31 mmol/L (22-30); Chloride 101 mmol/L (98-107); Estimated CRCL calculation 76 ml/min; Estimated Glomerular Filt Rate > 60; Glucose 106 mg/dL (65-110); Sodium 135 mmol/L (137-145)
[2022-04-02 08:26] VITALS: PULSE 86
[2022-04-02] MEDS: CLOPIDOGREL BISULFATE 75 MG TABLET PO (08:26)
[2022-04-02] MEDS: lisinopriL 20 MG TABLET PO (08:26)
[2022-04-02] MEDS: PANTOPRAZOLE 40 MG TABLET PO (08:26)
[2022-04-02] MEDS: carvediloL 6.25 MG TABLET PO (08:26)
[2022-04-02] MEDS: TAMSULOSIN HCL 0.4 MG CAPSULE PO (08:26)
[2022-04-02] MEDS: ENOXAPARIN 40 MG/0.4 ML SYRINGE SUB-Q (08:27)
[2022-04-02] MEDS: FUROSEMIDE INJ 40 MG/4 ML VIAL IV PUSH (08:27)
--- NOTE | 2022-04-02 10:05 | PM.PNCARD ---
Progress Note: A&P Assessment and Plan (1) CHF exacerbation: Qualifiers: Heart failure type: unspecified Qualified Code(s): I50.9 - Heart failure, unspecified Code(s): I50.9 - Heart failure, unspecified Status: Acute Assessment and Plan: Acute systolic heart failure. Continue lisinopril. Discontinue IV furosemide. Start furosemide 40 mg p.o. daily. Potassium supplement 20 mEq p.o. daily will also be initiated. Continue lisinopril and carvedilol. He is formally seen Dr. Ghosh at [place]. He lives in [place] and was scheduled follow-up with [facility]. He should see them within 1-2 weeks (2) Cardiomyopathy: Code(s): I42.9 - Cardiomyopathy, unspecified Status: Acute Assessment and Plan: Probably nonischemic. EF 20 25%. Will request records from [place] as it sounds like the patient had a cardiac catheterization recently which generally showed diffuse but nonobstructive disease. (3) Hypertension: Qualifiers: Hypertension type: primary hypertension Qualified Code(s): I10 - Essential (primary) hypertension Code(s): I10 - Essential (primary) hypertension Status: Acute Assessment and Plan: At goal (4) Methamphetamine abuse in remission: Code(s): F15.11 - Other stimulant abuse, in remission Status: Acute Subjective Date/time seen: 04/02/22 10:05 Interval history: Papi Sanchez is a 52-year-old male with a history of CHF currently untreated, hypertension, hyperlipidemia, methamphetamine abuse, BPH, valvular disease, and recent incarceration who is seen in follow-up for CHF exacerbation. Date of service 04/01/2022: Continues to feel better. Legs are less swollen. No syncope, presyncope. No chest pain Date of service 04/02/2022: He feels overall much better. No chest pain. Legs are almost back to normal. No shortness of breath Review of Systems Review of Systems: All systems reviewed & are unremarkable except as noted in HPI and below Constitutional: Constitutional: Denies body ache(s) and Denies excessive sweating Eyes: Eyes: Denies blurry vision ENT: Reports Normal hearing present Cardiovascular: Cardiovascular: Denies chest pain, Reports leg edema and Reports dyspnea Respiratory: Respiratory: Reports dyspnea Gastrointestinal: Gastrointestinal: Denies abdominal pain Genitourinary: Genitourinary: Denies hematuria Musculoskeletal: Musculoskeletal: Denies back pain Integumentary/Breasts: Skin/Breast: Denies breast pain Neurologic: Reports Normal hearing present, Denies Abnormal speech present and Denies confusion Psychiatric: Psychiatric: Denies confusion Endocrine: Endocrine: Denies excessive sweating Hematologic/Lymphatic: Hematologic/Lymphatic: Denies easy bleeding Allergic/Immunologic: Allergic/Immunologic: Denies GI upset with certain foods Exam Narrative: Awake alert oriented appears stated age Const: General: comfortable; No in distress or confusion Orientation/consciousness: No confusion HENMT: General nose exam: Normal nares present Eyes: Sclera: sclerae normal Neck: Neck: supple and no JVD Thyroid: thyroid normal Chest: Other: No reproducible chest wall Resp: Effort & Inspection: normal respiratory effort Cardio: Rate: regular rate Rhythm: regular rhythm Heart sounds: no murmurs Skin: General skin exam: normal color and no rashes or lesions noted Neuro: General: No gait normal and No confusion Cranial nerves: Yes Normal hearing present Speech: No Abnormal speech present Motor exam (neuro): 5/5 motor strength present throughout Extrem: Other: Trivial bilateral lower extremity edema Psych: Mental Status: mental status grossly normal Objective Data Vital Signs Vital Signs: Vital Signs - 24 hr 04/01/22 14:00 04/01/22 20:00 04/01/22 20:55 Temperature 36.2 C L 36.5 C Pulse Rate 85 102 H 96 Respiratory Rate 20 20 Blood Press
[2022-04-02] MEDS: FUROSEMIDE 40 MG TABLET PO (11:40)
[2022-04-02] MEDS: POTASSIUM CHLORIDE 20 MEQ TABLET.ER PO (11:40)
--- NOTE | 2022-04-02 12:31 | P.DS_ITS ---
DS: Admitting Diagnosis Discharge Date 04/02/2022 Admitting Diagnosis CHF exacerbation DS: Discharge Diagnosis Discharge Diagnosis (1) CHF exacerbation: Qualifiers: Heart failure type: unspecified Qualified Code(s): I50.9 - Heart failure, unspecified Code(s): I50.9 - Heart failure, unspecified Status: Acute Assessment and Plan: Patient presented with increased shortness of breath and diffuse edema. BNP 5800 * He had been off his medications for nearly 2 months during incarceration and had progressively worsening shortness of breath * Echo revealed severely reduced EF 20-25% with abnormal diastolic function * He was seen in consultation by Cardiology * Diuresed with IV Lasix and had symptomatic improvement * Will continue p.o. Lasix 40 mg daily. KCL 20 mEq daily also started * Started on carvedilol 6.25 mg b.i.d. which will be continued * Continue home lisinopril * He will need to follow-up with his human resources designate at [facility] in 1-2 weeks (2) Anasarca: Code(s): R60.1 - Generalized edema Status: Acute Assessment and Plan: Secondary to uncontrolled heart failure * Improved with diuresis * Medical management as above (3) Pulmonary nodule: Code(s): R91.1 - Solitary pulmonary nodule Status: Acute Assessment and Plan: CT of the chest revealed 7.9 mm right lower lobe pulmonary nodule * Will need outpatient repeat CT scan of the chest in 6-12 months (4) Methamphetamine abuse in remission: Code(s): F15.11 - Other stimulant abuse, in remission Status: Acute Assessment and Plan: Patient had been using methamphetamines prior to his incarceration * He has been off of methamphetamines for over 1 month. * He wishes to continue to abstain from drugs. * He is interested in inpatient treatment options at [facility] * Resources provided and patient has been in contact for treatment (5) Hypertension: Qualifiers: Hypertension type: primary hypertension Qualified Code(s): I10 - Essential (primary) hypertension Code(s): I10 - Essential (primary) hypertension Status: Acute Assessment and Plan: Blood pressure reviewed and improved with diuresis. * Continue lisinopril and carvedilol * Amlodipine and nifedipine both discontinued per Cardiology * Monitor BP trends (6) Abnormal CT of the abdomen: Code(s): R93.5 - Abnormal findings on diagnostic imaging of other abdominal regions, including retroperitoneum Status: Acute Assessment and Plan: CT of the abdomen revealed left rectus abdominus asymmetric enlargement and numerous calcifications. Most likely diagnosis is myositis ossifications or prior hematoma calcification. Less likely considerations include soft tissue sarcoma, metastatic osteosarcoma * Patient has been evaluated for this in the past and reports recently had CT- guided biopsy at [facility] * Records have been requested but were not received during the patients admission. * No acute issues. He will need to follow-up outpatient regarding this * He reports he received a call from his physicians office stating the biopsy results were benign and he has been instructed to follow up for surgical evaluation. Appointment scheduled 04/17/22. He will need cardiac clearance from his primary human resources designate prior to undergoing any surgical intervention. DS: Summary Hospital Course Hospital Course: Date of admission: 03/30/2022 Date of discharge: 04/02/2022
--- NOTE | 2022-04-02 12:31 | PM.DS ---
DS: Admitting Diagnosis Discharge Date 04/02/2022 Admitting Diagnosis CHF exacerbation DS: Discharge Diagnosis Discharge Diagnosis (1) CHF exacerbation: Qualifiers: Heart failure type: unspecified Qualified Code(s): I50.9 - Heart failure, unspecified Code(s): I50.9 - Heart failure, unspecified Status: Acute Assessment and Plan: Patient presented with increased shortness of breath and diffuse edema. BNP 5800 He had been off his medications for nearly 2 months during incarceration and had progressively worsening shortness of breath Echo revealed severely reduced EF 20-25% with abnormal diastolic function He was seen in consultation by Cardiology Diuresed with IV Lasix and had symptomatic improvement Will continue p.o. Lasix 40 mg daily. KCL 20 mEq daily also started Started on carvedilol 6.25 mg b.i.d. which will be continued Continue home lisinopril He will need to follow-up with his tire debeader at [facility] in 1-2 weeks (2) Anasarca: Code(s): R60.1 - Generalized edema Status: Acute Assessment and Plan: Secondary to uncontrolled heart failure Improved with diuresis Medical management as above (3) Pulmonary nodule: Code(s): R91.1 - Solitary pulmonary nodule Status: Acute Assessment and Plan: CT of the chest revealed 7.9 mm right lower lobe pulmonary nodule Will need outpatient repeat CT scan of the chest in 6-12 months (4) Methamphetamine abuse in remission: Code(s): F15.11 - Other stimulant abuse, in remission Status: Acute Assessment and Plan: Patient had been using methamphetamines prior to his incarceration He has been off of methamphetamines for over 1 month. He wishes to continue to abstain from drugs. He is interested in inpatient treatment options at [facility] Resources provided and patient has been in contact for treatment (5) Hypertension: Qualifiers: Hypertension type: primary hypertension Qualified Code(s): I10 - Essential (primary) hypertension Code(s): I10 - Essential (primary) hypertension Status: Acute Assessment and Plan: Blood pressure reviewed and improved with diuresis. Continue lisinopril and carvedilol Amlodipine and nifedipine both discontinued per Cardiology Monitor BP trends (6) Abnormal CT of the abdomen: Code(s): R93.5 - Abnormal findings on diagnostic imaging of other abdominal regions, including retroperitoneum Status: Acute Assessment and Plan: CT of the abdomen revealed left rectus abdominus asymmetric enlargement and numerous calcifications. Most likely diagnosis is myositis ossifications or prior hematoma calcification. Less likely considerations include soft tissue sarcoma, metastatic osteosarcoma Patient has been evaluated for this in the past and reports recently had CT-guided biopsy at [facility] Records have been requested but were not received during the patients admission. No acute issues. He will need to follow-up outpatient regarding this He reports he received a call from his physicians office stating the biopsy results were benign and he has been instructed to follow up for surgical evaluation. Appointment scheduled 04/17/22. He will need cardiac clearance from his primary tire debeader prior to undergoing any surgical intervention. DS: Summary Hospital Course Hospital Course: Date of admission: 03/30/2022 Date of discharge: 04/02/2022 Papi Sanchez is a 52-year-old male with a history of CHF currently untreated, hypertension, hyperlipidemia, methamphetamine abuse, BPH, valvular disease, and recent incarceration who presented to the emergency department on 03/29/2022 with complaints of increased shortness of breath and lower extremity edema. He has been off of his medications during his incarceration. On presentation to the ED, it his BNP was found to be elevated
== END 2022-04-02 14:25 | disposition home or self-care (01) | DRG 194 ==
LOC: ANHED 18:47 → ANH3MEDSUR 22:45
PROVIDERS: Physician Assistant; Admitting Provider Internal Medicine; Emergency Provider Emergency Medicine; PCP Internal Medicine; Visit Provider Physician Assistant
DX: I11.0 Hypertensive heart disease with heart failure (principal); R91.1 Solitary pulmonary nodule; F15.11 Other stimulant abuse, in remission; Z87.891 Personal history of nicotine dependence; Z82.49 Family history of ischemic heart disease and other diseases of the circulatory system; Z80.1 Family history of malignant neoplasm of trachea, bronchus and lung; E78.5 Hyperlipidemia, unspecified; Z82.3 Family history of stroke; N40.0 Benign prostatic hyperplasia without lower urinary tract symptoms; K21.9 Gastro-esophageal reflux disease without esophagitis; Z86.73 Personal history of transient ischemic attack (TIA), and cerebral infarction without residual deficits; Z79.899 Other long term (current) drug therapy; I50.21 Acute systolic (congestive) heart failure; I42.8 Other cardiomyopathies; I25.10 Atherosclerotic heart disease of native coronary artery without angina pectoris
CPT/HCPCS: 36415; 71046; 71250; 74176; 80048; 80053; 83605; 83690; 83735; 83880; 84484; 85025; 85027; 85610; 85730; 93005; 93306; 96374; 96376; 99285; A9270; G0378; G0379; J1650; J1940

== ENCOUNTER 2022-09-06 13:25 | Emergency (ER) | payer OTHER, SELFPAY ==
[2022-09-06 13:59] VITALS: BP 132/90; PULSE 83; RESP 18; TEMP 36.7; O2SAT 100
--- NOTE | 2022-09-06 14:52 | ED.ABDPAIN ---
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 Patient's sister is telling me that patient had possible stomach tumor 2 years ago at [facility], no follow-up, later his pain got worse and had a recent diagnosis of intra-abdominal cancer 1 month ago. Patient had CAT scan of the abdomen at [facility] yesterday. Sister was able to read the report to me through the phone which saying that the patient have stricture and rectal mass with a large amount of stool and possible distal obstruction. Patient still me that he been using a lot of [id number] stool softeners including Colace without any response in the last few days. Related Data Home Medications Medication Instructions Recorded Confirmed clopidogrel 75 mg tablet 1 tablet PO DAILY 03/29/22 03/29/22 ibuprofen 600 mg tablet 1 tablet PO Q6H PRN Pain 03/29/22 03/29/22 lisinopril 20 mg tablet 1 tablet PO DAILY 03/29/22 03/29/22 pantoprazole 40 mg tablet,delayed 1 tablet PO DAILY 03/29/22 03/29/22 release tamsulosin 0.4 mg capsule 1 cap PO DAILY 03/29/22 03/29/22 Allergies Allergy/AdvReac Type Severity Reaction Status Date / Time Penicillins Allergy Other Verified 03/29/22 17:25 Review of Systems Review of Systems: All systems reviewed & are unremarkable except as noted in HPI and below PMFSH Past Medical History Medical History BPH (benign prostatic hyperplasia) CHF (congestive heart failure) Essential hypertension GERD (gastroesophageal reflux disease) Hyperlipidemia Methamphetamine abuse TIA (transient ischemic attack) Valvular heart disease Surgical History Surgical History History of biopsy History of CT-guided biopsy of left rectus abdominus enlargement and calcifications. Patient does not know his official diagnosis. Hx of cholecystectomy (~2019) Status post open reduction with internal fixation of fracture (~1986) Left orbital blowout fracture Family History Family History Mother , Age 50 Lung cancer Hypertension Father , 864 S/P triple vessel bypass Hypertension Chronic kidney disease Sibling Cerebrovascular accident Heart attack Hypertension Social History Social History Social History: He has been homeless since 2019. 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 He has smoked a half a pack per day since he was 16 years old. He used to drink up to 1-2 pt of alcohol a day but only rarely drinks alcohol now. He has used methamphetamines on a frequent an almost daily basis for the last 3 years or more. He has not used meth since his incarceration in January of 2022. He is single and has never been . He does not have any children. Code status: Full code Surrogate decision maker: Brittany Casas (sister) Smoking packs per day: 0.5 Smoking cigarettes per day: 10.0 Years smoked: 36 Smoking pack-years: 18.00 Smoking status: Former smoker Smoking end date: 02/18/22 Alcohol intake: current Alcohol use details: 1-2 pt per day but had cut back to only rarely drinking proximally 2018. Substance use: current Substance use type: marijuana an
[2022-09-06] MEDS: SODIUM CHLORIDE 0.9% IV 1,000 ML 999 ML IV CONT (15:28)
[2022-09-06 15:32] LABS: Basophils Absolute Auto 0.1 K/mm3 (0.0-0.1); Eosinophils Absolute Auto 0.1 K/mm3 (0-0.3); Hematocrit 43.4 % (42.0-52.0); Hemoglobin 14.1 g/dL (14.0-18.0); Immature Granulocyte Absolute 0.02 K/mm3 (0.00-0.031); Immature Granulocyte Percent A 0.2 % (0-0.5); Lymphocytes Absolute Auto 1.37 K/mm3 (0.9-3.2); Lymphocytes Percent Auto 15.1 % (18.3-44.2); Mean Corpuscular HGB Conc 32.5 g/dl (32-36); Mean Corpuscular Hemoglobin 29.8 pg (26-34); Mean Corpuscular Volume 91.8 fl (80-100); Mean Platelet Volume 9.2 fl (7.4-10.4); Monocytes Absolute Auto 1.2 K/mm3 (0.1-0.6); Monocytes Percent Auto 12.7 % (2.6-8.5); Neutrophils Absolute Auto 6.4 K/mm3 (1.3-6.7); Platelet Count Result 398 k/mm3 (150-375); Red Blood Count 4.73 M/mm3 (4.6-6.20); Red Cell Distribution Width 13.9 % (11.5-14.5); White Blood Count 9.1 K/mm3 (4.5-10.0)
[2022-09-06] MEDS: HYDROmorphone HCL INJ (*CRX) 1 MG/ML SYR 0.5 MG IV PUSH (16:15)
[2022-09-06] MEDS: ONDANSETRON INJ 4 MG/2 ML VIAL IV PUSH (16:15)
--- NOTE | 2022-09-06 17:13 | PC.NURSE ---
PT sister Leeann Prognosis according to sister is Stage 4. Call with any questions
[2022-09-06 17:54] LABS: Alanine Aminotransferase 20 U/L (6-50); Albumin Level 3.8 g/dL (3.5-5.1); Alkaline Phosphatase 96 U/L (38-126); Anion Gap 12 mmol/L (8-16); Aspartate Amino Transferase 22 U/L (17-59); Bilirubin,Total 0.3 mg/dL (0.2-1.3); Blood Urea Nitrogen 21 mg/dL (9-20); Calcium 9.7 mg/dL (8.4-10.2); Carbon Dioxide 30 mmol/L (22-30); Chloride 95 mmol/L (98-107); Estimated CRCL calculation 94 ml/min; Estimated Glomerular Filt Rate > 60; Glucose 84 mg/dL (65-110); Lipase 110 U/L (23-300); Potassium 3.5 mmol/L (3.4-5.0); Sodium 137 mmol/L (137-145)
--- NOTE | 2022-09-06 18:00 | PC.NURSE ---
green top hemolyzed and Amalia (tech) went to redraw green top and pt yelling and cussing at her told her he doesn't want blood drawn. Informed pt need a lab for CT and patient became belligerent and started yelling he was leaving. ERP spoke with pt and he is going to go home.
--- NOTE | 2022-09-06 18:13 | PC.NURSE ---
pt A/O x 4 no obvious distress. Pt left ED AMA
== END 2022-09-06 18:21 | disposition left against medical advice (07) ==
PROVIDERS: Emergency Provider Emergency Medicine; PCP Internal Medicine
DX: R10.30 Lower abdominal pain, unspecified (principal); C76.2 Malignant neoplasm of abdomen; C78.5 Secondary malignant neoplasm of large intestine and rectum; C79.2 Secondary malignant neoplasm of skin; I50.9 Heart failure, unspecified; I11.0 Hypertensive heart disease with heart failure; E78.5 Hyperlipidemia, unspecified; N40.0 Benign prostatic hyperplasia without lower urinary tract symptoms; K21.9 Gastro-esophageal reflux disease without esophagitis; Z86.73 Personal history of transient ischemic attack (TIA), and cerebral infarction without residual deficits; I38 Endocarditis, valve unspecified; Z87.891 Personal history of nicotine dependence
CPT/HCPCS: 36415; 80053; 83690; 85025; 96361; 96374; 96375; 99284; J1170; J2405; J7030

== ENCOUNTER 2023-10-18 05:42 | Emergency (ER) | payer OTHER, SELFPAY ==
--- NOTE | ~2023-10-18 | CT_ITS ---
EXAMINATION: CT abdomen pelvis w con DATE: 10/18/2023 07:36 INDICATION: Pancreatic cancer. Constipation. TECHNIQUE: Computed tomography (CT) of the abdomen and pelvis was performed with 100 mL Omnipaque 350 intravenous contrast. Automated exposure control and iterative reconstruction technique were employe d. The dose-length product was 785.48 mGy-cm. COMPARISON: CT abdomen and pelvis 03/29/2022 FINDINGS: The visualized portions of the lung bases demonstrate mild emphysema. There is a 6 mm nodul e in right lower lobe, decreased from 8 mm on 03/29/2022. No pleural effusion. The heart size is normal . There are coronary artery calcifications. No pericardial effusion. There is mild bilateral gynecoma stia. There is a small sliding hiatal hernia. There is a 10 mm cyst in the liver. The spleen, pancrea s, and adrenal glands are normal. There is cortical thinning of the kidneys. There are cysts in left kidney measuring up to 7 mm. There is a large volume of stool in the colon. There is wall thickening of the sigmoid colon nearby small bowel with fat stranding. There are diverticula in the colon. The s igmoid colon is small in caliber. There are no pathologically enlarged lymph nodes. There is no free intraperitoneal fluid. There is enlargement of the left rectus abdominis muscle with calcifications a nd adjacent spiculation. Thoracolumbar dextroscoliosis is noted. There is mild chronic anterior wedgi ng of multiple thoracic vertebral bodies. IMPRESSION: 1. Wall thickening of sigmoid colon and nearby small bowel with fat stranding. These findings may be serosal metastatic disease or chronic diverticulitis. Small caliber of the sigmoid colon is suspiciou s for stricture. 2. Chronic enlargement of left rectus abdominis muscle with adjacent fat stranding. These findings ma y be an old hematoma, surgical change, and/or metastatic disease. 3. 6 mm right lower lobe pulmonary nodule with interval improvement, which may be benign or metastati c disease. Reviewed, dictated and finalized at location [facility] IMPRESSION: 1. Wall thickening of sigmoid colon and nearby small bowel with fat stranding. These findings may be serosal metastatic disease or chronic diverticulitis. Sma ll caliber of the sigmoid colon is suspicious for stricture. 2. Chronic enlargement of left rectus abdominis muscle with adjacent fat strand ing. These findings may be an old hematoma, surgical change, and/or metastatic disease. 3. 6 mm right lower lobe pulmonary nodule with interval improvement, which may be benign or metastatic disease.
[2023-10-18 05:42] VITALS: BP 129/90; PULSE 85; RESP 20; TEMP 36.1; O2SAT 100
[2023-10-18 05:57] LABS: Basophils Absolute Auto 0.1 K/mm3 (0.0-0.1); Basophils Percent Auto 0.6 % (0.2-1.2); Eosinophils Percent Auto 0.3 % (0-4.4); Hematocrit 43.9 % (42.0-52.0); Hemoglobin 14.7 g/dL (14.0-18.0); Immature Granulocyte Absolute 0.03 K/mm3 (0.00-0.031); Immature Granulocyte Percent A 0.3 % (0-0.5); Lymphocytes Absolute Auto 2.01 K/mm3 (0.9-3.2); Lymphocytes Percent Auto 20.3 % (18.3-44.2); Mean Corpuscular HGB Conc 33.5 g/dl (32-36); Mean Corpuscular Volume 92.6 fl (80-100); Mean Platelet Volume 8.8 fl (7.4-10.4); Monocytes Absolute Auto 1.5 K/mm3 (0.1-0.6); Monocytes Percent Auto 15.2 % (2.6-8.5); Neutrophils Absolute Auto 6.3 K/mm3 (1.3-6.7); Neutrophils Percent Auto 63.3 % (45.5-73.1); Platelet Count Result 454 k/mm3 (150-375); Red Blood Count 4.74 M/mm3 (4.6-6.20); Red Cell Distribution Width 15.6 % (11.5-14.5); White Blood Count 9.9 K/mm3 (4.5-10.0)
--- NOTE | 2023-10-18 06:48 | ED.GENADULT ---
HPI - General Adult General Chief complaint: Abdominal Pain <Willis Muhammad MD - Last Filed: 10/18/23 06:53> Stated complaint: abd pain <Willis Muhammad MD - Last Filed: 10/18/23 06:53> Time Seen by Provider: 10/18/23 05:59 <Willis Muhammad MD - Last Filed: 10/18/23 06:53> History of Present Illness HPI narrative: Patient is a 45-year-old gentleman who presents emergency department chief complaint of abdominal pain and constipation. Patient reports he has history of pancreatic cancer is followed by Oncology at all. The patient reports that he has not had a bowel movement about 7 days reports that he has been seen at all before for this with the given him a GoLYTELY and admitted him to the hospital until he had a bowel movement. The patient states that he has had no fever but reports that he has continual vomiting reports that he did pass 1 stool home about a week ago that was extremely hard. <Willis Muhammad MD - Last Filed: 10/18/23 06:53> Patient is a 45-year-old gentleman who presents to the emergency department chief complaint of abdominal pain and constipation. Patient reports he has history of pancreatic cancer is followed by Oncology. The patient reports that he has not had a bowel movement about 7 days reports that he has been seen at all before for this with the given him a GoLYTELY and admitted him to the hospital until he had a bowel movement. The patient states that he has had no fever but reports that he has continual vomiting reports that he did pass 1 stool home about a week ago that was extremely hard. <Tee Good MD - Last Filed: 10/18/23 17:57> Related Data Home medications: Home Medications Medication Instructions Recorded Confirmed clopidogrel 75 mg tablet 1 tablet PO DAILY 03/29/22 03/29/22 ibuprofen 600 mg tablet 1 tablet PO Q6H PRN Pain 03/29/22 03/29/22 lisinopril 20 mg tablet 1 tablet PO DAILY 03/29/22 03/29/22 pantoprazole 40 mg tablet,delayed 1 tablet PO DAILY 03/29/22 03/29/22 release tamsulosin 0.4 mg capsule 1 cap PO DAILY 03/29/22 03/29/22 <Willis Muhammad MD - Last Filed: 10/18/23 06:53> Allergies/adverse reactions: Allergies Allergy/AdvReac Type Severity Reaction Status Date / Time Penicillins Allergy Loss of Verified 10/18/23 14:01 Consciousness <Willis Muhammad MD - Last Filed: 10/18/23 06:53> Review of Systems Review of Systems: A 10 system review of systems was completed on the patient and is negative except for what is stated in the HPI. Nursing and ancillary documentation was reviewed. <Willis Muhammad MD - Last Filed: 10/18/23 06:53> [facility] Past Medical History Medical History: Medical History (Updated 10/18/23 @ 14:01 by Renuka Holm) BPH (benign prostatic hyperplasia) CHF (congestive heart failure) Essential hypertension GERD (gastroesophageal reflux disease) Hyperlipidemia Methamphetamine abuse TIA (transient ischemic attack) Valvular heart disease <Willis Muhammad MD - Last Filed: 10/18/23 06:53> Surgical History Surgical History: Surgical History (Updated 10/18/23 @ 14:01 by Renuka Holm) History of biopsy History of CT-guided biopsy of left rectus abdominus enlargement and calcifications. Patient does not know his official diagnosis. Hx of cholecystectomy (~2019) Status post open reduction with internal fixation of fracture (~1986) Left orbital blowout fracture <Willis Muhammad MD - Last Filed: 10/18/23 06:53> Family History Family History: Family History (System 10/18/23 @ 14:01 by Renuka Holm) Mother , Age 50 Lung cancer Hypertension Father , 864 S/P triple vessel bypass Hypertension Chronic kidney disease Sibling Cerebrovascular accident Heart attack Hypertension <Willis Muhammad MD - Last Filed: 10/18/23 06:53> Social History Social His
[2023-10-18 07:20] LABS: Alanine Aminotransferase 26 U/L (6-50); Albumin Level 4.2 g/dL (3.5-5.1); Alkaline Phosphatase 140 U/L (38-126); Anion Gap 9 mmol/L (8-16); Aspartate Amino Transferase 42 U/L (17-59); Bilirubin,Total 0.9 mg/dL (0.2-1.3); Blood Urea Nitrogen 28 mg/dL (9-20); Calcium 10.5 mg/dL (8.4-10.2); Carbon Dioxide 27 mmol/L (22-30); Chloride 94 mmol/L (98-107); Estimated CRCL calculation 82 ml/min; Estimated Glomerular Filt Rate > 60; Glucose 102 mg/dL (65-110); Lipase 98 U/L (23-300); Potassium 4.2 mmol/L (3.4-5.0); Sodium 130 mmol/L (137-145)
[2023-10-18 08:20] VITALS: BP 119/82; PULSE 89; RESP 25; O2SAT 97
== END 2023-10-18 08:21 | disposition home or self-care (01) ==
PROVIDERS: Emergency Provider Emergency Medicine
DX: K59.00 Constipation, unspecified (principal); C25.9 Malignant neoplasm of pancreas, unspecified; C79.9 Secondary malignant neoplasm of unspecified site; I50.9 Heart failure, unspecified; I11.0 Hypertensive heart disease with heart failure; I38 Endocarditis, valve unspecified; E78.5 Hyperlipidemia, unspecified; N40.0 Benign prostatic hyperplasia without lower urinary tract symptoms; K21.9 Gastro-esophageal reflux disease without esophagitis; Z86.73 Personal history of transient ischemic attack (TIA), and cerebral infarction without residual deficits; Z87.891 Personal history of nicotine dependence; Z90.49 Acquired absence of other specified parts of digestive tract; R91.1 Solitary pulmonary nodule; R93.3 Abnormal findings on diagnostic imaging of other parts of digestive tract
CPT/HCPCS: 36415; 74177; 80053; 83690; 85025; 99284; Q9967